=== PATIENT | male | born 1975 | race Caucasian/White ===

== ENCOUNTER → 2018-08-10 | Outpatient (CLI) | payer OTHER ==
[~2018-08-10] MED LIST: INH; MULT-608 PO; PROBIOTIC1 EACH PO; SULF1TAB38 PO
[2018-08-10 07:24] LABS: BASOPHILS % (AUTO) 1 % (0-10); EOSINOPHILS # (AUTO) 0.1 10^3/uL (0.0-0.3); EOSINOPHILS % (AUTO) 3 % (0-10); HEMATOCRIT 41 % (40-54); HEMOGLOBIN 14.2 G/DL (13.3-17.7); LYMPHOCYTES # (AUTO) 1.9 X 10^3 (1.0-4.0); LYMPHOCYTES % (AUTO) 41 % (12-44); MEAN CORPUSCULAR HEMOGLOBIN 29 PG (25-34); MEAN CORPUSCULAR HGB CONC 35 G/DL (32-36); MEAN CORPUSCULAR VOLUME 83 FL (80-99); MEAN PLATELET VOLUME 10.8 FL (7.4-10.4); MONOCYTES # (AUTO) 0.5 X 10^3 (0.0-1.0); MONOCYTES % (AUTO) 12 % (0-12); NEUTROPHILS % (AUTO) 44 % (42-75); PLATELET COUNT 213 10^3/uL (130-400); RED BLOOD COUNT 4.92 10^6/uL (4.35-5.85); RED CELL DISTRIBUTION WIDTH 13.5 % (10.0-14.5); WHITE BLOOD COUNT 4.6 10^3/uL (4.3-11.0)
[2018-08-10 07:45] LABS: ALANINE AMINOTRANSFERASE 42 U/L (0-55); ALBUMIN 4.2 GM/DL (3.2-4.5); ALKALINE PHOSPHATASE 81 U/L (40-136); BUN/CREATININE RATIO 14; CALCIUM 9.5 MG/DL (8.5-10.1); CARBON DIOXIDE 22 MMOL/L (21-32); CHLORIDE 109 MMOL/L (98-107); CHOLESTEROL 164 MG/DL (< 200); CREATININE SERUM 0.96 MG/DL (0.60-1.30); GFR ESTIMATED > 60; GLUCOSE 108 MG/DL (70-105); HDL CHOLESTEROL 40 MG/DL (40-60); POTASSIUM 4.1 MMOL/L (3.6-5.0); SODIUM 140 MMOL/L (135-145); TOTAL PROTEIN 6.8 GM/DL (6.4-8.2); TRIGLYCERIDES 71 MG/DL (<150); VLDL CHOLESTEROL 14 MG/DL (5-40)
[2018-08-10 08:06] LABS: FREE T4 (FREE THYROXINE) 1.06 NG/DL (0.70-1.48)
== END ==
LOC: LAB 07:07
PROVIDERS: ATTEND Nurse Practitioner Family
DX: Z00.00 Encounter for general adult medical examination without abnormal findings (principal); E03.9 Hypothyroidism, unspecified; R63.1 Polydipsia
CPT/HCPCS: 36415; 80053; 80061; 83036; 84439; 84443; 85025

== ENCOUNTER 2018-09-16 02:33 | Emergency (ER) | payer OTHER ==
[~2018-09-16] VITALS: Ht 190.5 cm; Wt 95.3 kg
[2018-09-16] MEDS ORDERED: KETOROLAC 30 MG/ML VIAL IVP STA (02:42)
[2018-09-16] MEDS ORDERED: LACTATED RINGERS 1,000 ML IV ONE ×2 (02:42→04:11)
[2018-09-16] MEDS ORDERED: ONDANSETRON 4 MG/2 ML (SDV) Z0FRAN IVP ONE ×2 (02:45→05:45)
[2018-09-16 02:54] LABS: BASOPHILS % (AUTO) 0 % (0-10); EOSINOPHILS # (AUTO) 0.4 10^3/uL (0.0-0.3); EOSINOPHILS % (AUTO) 4 % (0-10); HEMATOCRIT 41 % (40-54); HEMOGLOBIN 14.1 G/DL (13.3-17.7); LYMPHOCYTES # (AUTO) 2.1 X 10^3 (1.0-4.0); LYMPHOCYTES % (AUTO) 23 % (12-44); MEAN CORPUSCULAR HEMOGLOBIN 28 PG (25-34); MEAN CORPUSCULAR HGB CONC 34 G/DL (32-36); MEAN CORPUSCULAR VOLUME 83 FL (80-99); MEAN PLATELET VOLUME 10.5 FL (7.4-10.4); MONOCYTES # (AUTO) 0.8 X 10^3 (0.0-1.0); MONOCYTES % (AUTO) 9 % (0-12); NEUTROPHILS % (AUTO) 65 % (42-75); PLATELET COUNT 200 10^3/uL (130-400); RED BLOOD COUNT 4.98 10^6/uL (4.35-5.85); RED CELL DISTRIBUTION WIDTH 13.2 % (10.0-14.5); WHITE BLOOD COUNT 9.4 10^3/uL (4.3-11.0)
[2018-09-16 03:15] LABS: ALANINE AMINOTRANSFERASE 32 U/L (0-55); ALBUMIN 4.4 GM/DL (3.2-4.5); ALKALINE PHOSPHATASE 77 U/L (40-136); AMYLASE 44 U/L (25-125); BILIRUBIN,TOTAL 0.9 MG/DL (0.1-1.0); BUN/CREATININE RATIO 16; CALCIUM 9.4 MG/DL (8.5-10.1); CARBON DIOXIDE 21 MMOL/L (21-32); CHLORIDE 105 MMOL/L (98-107); CREATININE SERUM 1.16 MG/DL (0.60-1.30); GFR ESTIMATED > 60; GLUCOSE 137 MG/DL (70-105); LIPASE 26 U/L (8-78); POTASSIUM 3.7 MMOL/L (3.6-5.0); SODIUM 138 MMOL/L (135-145)
[2018-09-16] MEDS ORDERED: fentaNYL INJECTION 100 MCG/2 ML AMP IVP STA (04:11)
[2018-09-16] MEDS ORDERED: TAMSULOSIN 0.4 MG (FLOMAX) CAP PO SCH (04:15)
[2018-09-16 04:38] LABS: BILIRUBIN,URINE NEGATIVE (NEGATIVE); CLARITY,URINE CLEAR; COLOR,URINE YELLOW; GLUCOSE, URINE (UA) NEGATIVE (NEGATIVE); KETONES,URINE NEGATIVE (NEGATIVE); LEUKOCYTE ESTERASE ,URINE NEGATIVE (NEGATIVE); NITRITE,URINE NEGATIVE (NEGATIVE); PH,URINE 6 (5-9); PROTEIN,URINE 1+ (NEGATIVE); UROBILINOGEN,URINE NORMAL (NORMAL)
--- NOTE | 2018-09-16 04:38 | ED GU-Male ---
General Chief Complaint: Abdominal/GI Problems Stated Complaint: POSS KIDNEY STONE Nursing Triage Note: PT ARRIVES IN ED ROOM #5 WITH C/O PAIN FROM POSSIBLE KIDNEY STONE. PT STATES THAT THE PAIN STARTED ON MONDAY. PT'S PAIN HAS CONTINUED AND IS NOW INTOLERABLE. PT STATES THAT HE IS NOW HAVING DIFFICULTY URINATING. PT HAS A HX OF KIDNEY STONES. Source: patient Exam Limitations: no limitations History of Present Illness Date Seen by Provider: Sep 16, 2018 Time Seen by Provider: 02:40 Initial Comments PT ARRIVES VIA POV FROM HOME C/O LEFT FLANK PAIN RADIATION TO LLQ SINCE MONDAY WAS BETTER ON MONDAY, THEN PAIN RETURNED MONDAY (EARLIER TODAY) PAIN INITIALLY WOULD COME AND GO AND TOOK 1 HYDROCODONE AT 1830 AND IT HELPED LATER WENT TO SLEEP AND THEN WOKE UP AROUND 0100 WITH SEVERE PAIN TRIED TO TAKE ANOTHER HYDROCODONE, BUT HE BEGAN VOMITING SHORTLY AFTER THAT AND COULD NOT KEEP IT DOWN NO FEVER DID HAVE SOME BLOOD IN URINE ON MONDAY BUT NOT NOTICED ANY SINCE HAS NOT BEEN ABLE TO URINATE SINCE WAKING AT 0100, WAS VOIDING NORMALLY UNTIL THAT TIME. HAS A HISTORY OF KIDNEY STONES, AND THIS IS SIMILAR--HAS NOT HAD ONE FOR QUITE SOME TIME PCP: DR. TOURE UROLOGIST: DR. GORSS Allergies and Home Medications Allergies Coded Allergies: No Known Drug Allergies (Unverified , 10/30/10) Home Medications Lactobacillus Rhamnosus Gg 1 Each Capsule, 1 EACH PO DAILY, (Reported) Multivitamins 1 Tab Tablet, 1 TAB PO DAILY, (Reported) Patient Home Medication List Home Medication List Reviewed: Yes Review of Systems Review of Systems Constitutional: no symptoms reported Respiratory: no symptoms reported Cardiovascular: no symptoms reported Gastrointestinal: see HPI, abdominal pain, nausea, vomiting Genitourinary: see HPI, flank pain, hematuria Musculoskeletal: see HPI, back pain Skin: no symptoms reported Psychiatric/Neurological: No Symptoms Reported Endocrine: No Symptoms Reported Hematologic/Lymphatic: No Symptoms Reported Past Giavaff-Otbulb-Dsefvl Hx Patient Social History Alcohol Use: Denies Use Recreational Drug Use: No Smoking Status: Never a Smoker 2nd Hand Smoke Exposure: No Recent Foreign Travel: No Contact w/Someone Who Travel: No Recent Infectious Disease Expo: No Recent Hopitalizations: No Physical Abuse: No Sexual Abuse: No Mistreated: No Fear: No Immunizations Up To Date Date of Influenza Vaccine: Sep 06, 2011 Seasonal Allergies Seasonal Allergies: Yes Past Medical History Surgeries: Yes (CARDIAC SURGERY CHILD; RIGHT KNEE SCOPE; LITHOTRIPSY) Cardiac, Orthopedic, Renal Respiratory: No Cardiac: Yes (AVM) Congenital Heart Disease Neurological: Yes ([facility]M) Reproductive Disorders: No Genitourinary: Yes Kidney Stones Gastrointestinal: No Musculoskeletal: Yes (RIGHT KNEE SCOPE) Endocrine: No HEENT: No Cancer: No Psychosocial: No Integumentary: No Blood Disorders: No Physical Exam Vital Signs Vital Signs - First Documented 09/16/18 02:41 Temp 97.0 Pulse 60 Resp 18 B/P (MAP) 139/74 (95) Pulse Ox 98 Capillary Refill : Less Than 3 Seconds Height, Weight, BMI Height: 6'3.00" Weight: 210lbs. 0.0oz. 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, no motor/sensory deficits, alert, oriented x 3 Skin: normal color, warm/dry Progress/Results/Core Measures Suspected Sepsis Recent Fever Within 48 Hours: No Infection Criteria Present: None New/Unexplained Altered Menta: No Sepsis Screen: No Definite Risk SIRS Temperature:97.0 Pulse: 60 Respiratory Rate: 18 Laboratory Tests 09/16/18 02:45: White Blood Count 9.4 Blood Pressure 139 /74 Mean: 95 Laboratory Tests 09/16/18 02:45: Creatinine 1.16, Platelet Count 200, Total Bilirubin 0.9 Results/Orders Lab Results Laboratory Tests Test 09/16/18 02:45 Range/Units White Blood Count 9.4 4.3-11.0 10^3/uL Red Blood Count 4.98 4.35-5.85 10^6/uL Hemoglobin 14.1 13.3-17.7 G/DL Hematocrit 41 40-54 % Mean Corpuscular Volume 83 80-99 FL Mean Corpuscular Hemoglobin 28 25-34 PG Mean Corpuscular Hemoglobin Concent 34 32-36 G/DL Red Cell Distribution Width 13.2 10.0-14.5 % Platelet Count 200 130-400 10^3/uL Mean Platelet Volume 10.5 H 7.4-10.4 FL Neutrophils (%) (Auto) 65 42-75 % Lymphocytes (%) (Auto) 23 12-44 % Monocytes (%) (Auto) 9 0-12 % Eosinophils (%) (Auto) 4 0-10 % Basophils (%) (Auto) 0 0-10 % Neutrophils # (Auto) 6.0 1.8-7.8 X 10^3 Lymphocytes # (Auto) 2.1 1.0-4.0 X 10^3 Monocytes # (Auto) 0.8 0.0-1.0 X 10^3 Eosinophils # (Auto) 0.4 H 0.0-0.3 10^3/uL Basophils # (Auto) 0.0 0.0-0.1 10^3/uL Sodium Level 138 135-145 MMOL/L Potassium Level 3.7 3.6-5.0 MMOL/L Chloride Level 105 98-107 MMOL/L Carbon Dioxide Level 21 21-32 MMOL/L Anion Gap 12 5-14 MMOL/L Blood Urea Nitrogen 19 H 7-18 MG/DL Creatinine 1.16 0.60-1.30 MG/DL Estimat Glomerular Filtration Rate > 60 BUN/Creatinine Ratio 16 Glucose Level 137 H 70-105 MG/DL Calcium Level 9.4 8.5-10.1 MG/DL Corrected Calcium 9.1 8.5-10.1 MG/DL Total Bilirubin 0.9 0.1-1.0 MG/DL Aspartate Amino Transf (AST/SGOT) 22 5-34 U/L Alanine Aminotransferase (ALT/SGPT) 32 0-55 U/L Alkaline Phosphatase 77 40-136 U/L Total Protein 7.0 6.4-8.2 GM/DL Albumin 4.4 3.2-4.5 GM/DL Amylase Level 44 25-125 U/L Lipase 26 8-78 U/L My Orders Orders - CHANI CHUN DO Ct Abd/Pelvis Wo(Kidney Stone) (09/16/18 02:42) Amylase (09/16/18 02:42) Cbc With Automated Diff (09/16/18 02:42) Comprehensive Metabolic Panel (09/16/18 02:42) Lipase (09/16/18 02:42) Ua Culture If Indicated (09/16/18 02:42) Acute Abd Series (09/16/18 02:42) Saline Lock/Iv-Start (09/16/18 02:42) Saline Lock/Iv-Start (09/16/18 02:42) Lactated Ringers (Lr 1000 Ml Iv Solution (09/16/18 02:42) Ketorolac Injection (Toradol Injection) (09/16/18 02:42) Ondansetron Injection (Zofran Injectio (09/16/18 02:45) Saline Lock/Iv-Start (09/16/18 04:11) Lactated Ringers (Lr 1000 Ml Iv Solution (09/16/18 04:11) Fentanyl Injection (Sublimaze Injection (09/16/18 04:11) Tamsulosin Capsule (Flomax Capsule) (09/16/18 04:15) Medications Given in ED Current Medications Medications Dose Ordered Sig/Blanca Route Start Time Stop Time Status Last Admin Dose Admin Lactated Ringer's 1,000 ml @ 0 mls/hr Q0M ONCE IV 09/16/18 02:42 09/16/18 02:44 DC 09/16/18 02:52 0 MLS/HR Ondansetron HCl 8 mg ONCE ONCE IVP 09/16/18 02:45 09/16/18 02:46 DC 09/16/18 02:52 8 MG Vital Signs/I&O 09/16/18 02:41 Temp 97.0 Pulse 60 Resp 18 B/P (MAP) 139/74 (95) Pulse Ox 98 Capillary Refill : Less Than 3 Seconds Blood Pressure Mean: 95 Progress Note : Progress Note MODERATE IMPROVEMENT IN PAIN WITH TORADOL, PT IS ABLE TO REST QUIETLY PT DECLINED FENTANYL OR ANY OTHER PAIN MEDICATIONS RATES PAIN 2/10 AFTER TORADOL NAUSEA RESOLVED WITH ZOFRAN Diagnostic Imaging Comments ABD XRAYS--NO ACUTE PROCESS, PENDING RADIOLOGIST REVIEW CT ABDOMEN/PELVIS--4.5 MM LEFT MID URETERAL STONE WITH MILD LEFT HYDRONEPHROSIS- -PER [facility] VIA FAX @ 1231 Reviewed: Reviewed by Me Departure Impression Primary Impression: Left ureteral stone Disposition: HOME, SELF-CARE Condition: Improved Departure-Patient Inst. Referrals: JAMES TOURE MD (PCP/Family) Primary Care Physician PATRICK GROSS MD Patient Instructions: Kidney Stones (DC) Add. Discharge Instructions: LOTS OF FLUIDS STRAIN ALL URINE---RETURN ANY STONES TO DR. GROSS'S OFFICE FOLLOW UP WITH DR. GROSS ON MONDAY FOR FURTHER CARE RETURN TO ER IF WORSE All discharge instructions reviewed with patient and/or family. Voiced understanding. Scripts Ondansetron HCl (Zofran) 4 Mg Tab 1-2 TAB PO Q4H for Nausea/Vomiting, #10 TAB Prov: ADIELCHANI K DO 09/16/18 Hydrocodone/Ibuprofen (Hydrocodone-Ibuprofen 7.5-200) 1 Each Tablet 1-2 EACH PO Q4H for Pain MDD 6, #30 TAB Prov: ADIELCHANI K DO 09/16/18 Tamsulosin HCl (Flomax) 0.4 Mg Cap 0.4 MG PO DAILY, #10 CAP Prov: ADIELCHELAA K DO 09/16/18 Ciprofloxacin HCl (Cipro) 500 Mg Tablet 500 MG PO BID, #20 TAB Prov: ADIEL,CHANI K DO 09/16/18 ADIELCHANI K DO Sep 16, 2018 04:38
[2018-09-16 04:45] LABS: BACTERIA,URINE FEW /HPF; HYALINE CASTS, URINE RARE /LPF; RBC,URINE >100 /HPF; SQUAMOUS EPITHELIAL CELL,UR 0-2 /HPF; WBC,URINE RARE /HPF
[2018-09-16] MEDS ORDERED: CIPR-225 PO (05:09)
[2018-09-16] MEDS ORDERED: ONDN4T PO (05:09)
[2018-09-16] MEDS ORDERED: TAMS0.4C98 PO (05:09)
[2018-09-16] MEDS ORDERED: RX-ONDANSETRON 4 MG ODT (ZOFRAN) PPK #4 PO STA (05:09)
[2018-09-16] MEDS ORDERED: HYDR-87 PO (05:09)
[2018-09-16] MEDS ORDERED: RX-HYDROCODONE/APAP 5/325 MG #4 TAB PK PO PRN (05:15)
[2018-09-16 06:09] VITALS: BP 107/77
--- NOTE | 2018-09-16 06:41 | Diagnostic Imaging Report ---
PROCEDURE: CT urinary tract, rule out kidney stone. TECHNIQUE: Multiple contiguous axial images were obtained through the abdomen and pelvis without the use of intravenous contrast. INDICATION: Left flank pain. COMPARISON: None available. FINDINGS: Evaluation of the abdominal viscera is mildly limited without contrast. Lower chest: Calcified lingular pulmonary nodule and mediastinal lymph nodes are compatible with old granulomatous infection. No pericardial or pleural effusion. Peritoneum: No free intraperitoneal air or fluid. Liver and biliary system: Unenhanced liver is normal. The gallbladder is normal. No biliary duct dilation. Spleen and Pancreas: Spleen is normal. Unenhanced pancreas is grossly normal. Adrenals: Normal. tract: Mild left hydronephrosis and proximal hydroureter secondary to a 4 mm partially obstructing stone in the mid left ureter. No right renal or ureteral calculi. No right-sided obstructive uropathy. Urinary bladder is normally distended without wall thickening. Normal prostate. GI tract: Stomach is normally distended with fluid and food debris and there is no wall thickening. No bowel obstruction. No pericolonic inflammatory changes. Normal appendix. Vasculature and Lymph nodes: Normal caliber aorta. No abdominal or pelvic lymphadenopathy. Musculoskeletal: There is a spiculated sclerotic 9 mm rounded lesion within the left ilium at the lower aspect of the SI joint. IMPRESSION: 1. Mild left-sided hydronephrosis and hydroureter due to a 4 mm partially obstructing stone in the mid left ureter. 2. Sclerotic lesion within the left ilium may represent benign bone island, although no prior imaging is available to confirm stability. Consider followup CT pelvis without contrast in three-six months to ensure stability. Dictated by: Dictated on workstation # [id number]
--- NOTE | 2018-09-16 06:55 | Diagnostic Imaging Report ---
INDICATION: Left flank pain. COMPARISON: CT abdomen and pelvis performed earlier same day. FINDINGS: Lungs are clear with exception of a stable calcified lingular pulmonary nodule. No pleural effusion or pneumothorax. Normal cardiomediastinal silhouette. No free intraperitoneal air. No mineralized renal or ureteral stones by radiography. However, patient's known mid left ureteral stone is not radiographically apparent. Nonobstructive bowel gas pattern. Normal regional skeleton. IMPRESSION: 1. Patient's known left mid renal stone is not radiographically apparent. 2. Nonobstructive bowel gas pattern. 3. No acute cardiopulmonary process. Dictated by: Dictated on workstation # [id number]
[2018-09-16] MEDS ORDERED: HYDROcodone/APAP 5 MG/325 MG (LORTAB) TAB PO PRN (08:30)
== END 2018-09-16 06:09 | disposition home or self-care (01) ==
LOC: EDUNIT# 02:33 → ER 02:34
DX: N13.2 Hydronephrosis with renal and ureteral calculous obstruction (principal); Z87.442 Personal history of urinary calculi
CPT/HCPCS: 36415; 74022; 74176; 80053; 81000; 82150; 83690; 85025

== ENCOUNTER → 2018-09-17 | Outpatient (CLI) | payer OTHER ==
[~2018-09-17] MED LIST changes: +CIPR-225 PO; +HYDR-87 PO; +ONDN4T PO; +TAMS0.4C98 PO
--- NOTE | 2018-09-17 15:37 | Diagnostic Imaging Report ---
INDICATION: Left kidney stone and ureteral stone. TIME OF EXAM: 3:07 PM COMPARISON: Comparison is made to CT study from 09/16/2018. FINDINGS: No definite radiopaque renal calculi are seen. The previously noted ureteral calculus may be lying adjacent to the left transverse process of L4. No other suspicious calculi are seen. Bowel gas pattern is unremarkable. IMPRESSION: Previously noted mid left ureteric calculus appears to be in similar location adjacent to L4 transverse process. No other abnormalities are seen. Dictated by: Dictated on workstation # [id number]
== END ==
LOC: RAD 14:06
PROVIDERS: ATTEND Urology
DX: N20.2 Calculus of kidney with calculus of ureter (principal)
CPT/HCPCS: 74018

== ENCOUNTER 2018-09-25 06:00 | Day surgery (SDC) | payer OTHER ==
[~2018-09-25] VITALS: Ht 190.5 cm; Wt 95.3 kg
[2018-09-25 06:25] VITALS: BP 118/84
[2018-09-25] MEDS ORDERED: MIDAZOLAM 2 MG/2 ML (VERSED) VIAL ONE (06:50)
[2018-09-25] MEDS ORDERED: fentaNYL INJECTION 100 MCG/2 ML AMP ONE (06:50)
[2018-09-25] MEDS ORDERED: ONDANSETRON 4 MG/2 ML (SDV) Z0FRAN ONE ×2 (06:50→06:54)
[2018-09-25] MEDS ORDERED: proPOfol 200 MG/20 ML (DIPRIVAN) VIAL IV ONE ×2 (06:50→07:44)
[2018-09-25] MEDS ORDERED: LIDOCAINE PF 2% 5 ML (XYLOCAINE) VIAL ONE (06:50)
[2018-09-25] MEDS ORDERED: DEXAMETHASONE 10 MG/ML (DECADRON) 1 ML VIAL ONE (06:50)
[2018-09-25] MEDS ORDERED: SEVOFLURANE (ULTANE) 15 ML INHAL SOLN ONE ×5 (06:51→08:02)
[2018-09-25] MEDS ORDERED: NS (IVPB) 50 ML ONE (06:53)
[2018-09-25] MEDS ORDERED: cefTRIAXone 1 GM/10 ML for IV (ROCEPHIN) ONE (06:53)
[2018-09-25] MEDS ORDERED: FAMOTIDINE 20MG/2ML IV (PEPCID) ONE (06:54)
[2018-09-25] MEDS ORDERED: SCOPOLAMINE 1.5 MG (TRANSDERM-SCOP) PATCH ONE (06:54)
[2018-09-25] MEDS ORDERED: cefTRIAXone 1 GM/NS 50 ML IVPB IV ONE ×2 (07:00)
[2018-09-25] MEDS ORDERED: CATHETER FLUSH 10 ML SYR IV PRN (07:00)
--- NOTE | 2018-09-25 07:04 | Progress Note-Pre Operative ---
Pre-Operative Progress Note H&P Reviewed The H&P was reviewed, patient examined and no changes noted. Date Seen by Provider: Sep 25, 2018 Time Seen by Provider: 07:04 Date H&P Reviewed: Sep 25, 2018 Time H&P Reviewed: 07:04 Pre-Operative Diagnosis: LT PROXIMAL URTERAL STONE PATRICK GROSS MD Sep 25, 2018 7:04 am
[2018-09-25] MEDS ORDERED: LACTATED RINGERS 1,000 ML IV PRN (07:22)
--- NOTE | 2018-09-25 07:23 | Diagnostic Imaging Report ---
INDICATION: Preoperative evaluation for ESWL. History of left ureteral calculus. COMPARISON: 09/17/2018. FINDINGS: Single supine radiographic view of the abdomen was obtained and demonstrates subtle spherical extraosseous calcification projecting over the inferolateral margins of the left L3 transverse process. No other extraosseous calcifications or radiopaque foreign bodies are seen. Small bowel loops are nondistended. There is no large collection of free intraperitoneal air. IMPRESSION: Possible calculus projecting over the left L3 transverse processes versus artifact. Dictated by: Dictated on workstation # [id number]
[2018-09-25] MEDS ORDERED: ONDANSETRON 4 MG/2 ML (SDV) Z0FRAN IV ONE (07:30)
[2018-09-25] MEDS ORDERED: SCOPOLAMINE 1.5 MG (TRANSDERM-SCOP) PATCH TOP ONE (07:30)
[2018-09-25] MEDS ORDERED: FAMOTIDINE 20MG/2ML IV (PEPCID) IV ONE (07:30)
--- NOTE | 2018-09-25 07:59 | Progress Note-Post Operative ---
Post-Operative Progess Note Surgeon (s)/Furnace Cleaner (s) Surgeon PATRICK GROSS MD Furnace Cleaner: NONE Pre-Operative Diagnosis LT PROXIMAL URETERAL STONE Post-Operative Diagnosis SAME Procedure & Operative Findings Date of Procedure 09/25/18 Procedure Performed/Findings LT URETEROSCOPY AND LT ESWL Anesthesia Type GENERAL Estimated Blood Loss Estimated blood loss (mL): NONE Specimens/Packing Specimens Removed NONE Packing: NONE PATRICK GROSS MD Sep 25, 2018 7:59 am
--- NOTE | 2018-09-25 08:01 | Discharge Inst-Urology ---
Discharge Inst-Urology Discharge Medications New, Converted, or Re-newed RX: RX on Chart Patient Instructions/Follow Up Plan Please make appointment to been seen in office in 2 weeks. KUB prior to it KUB on way home Post ESWL instructions Increase oral fluids for 48 hours and then as needed. Diet and Activity as tolerated. If questions or concerns contact your physician Or seek help at emergency department. PATRICK GROSS MD Sep 25, 2018 8:01 am
[2018-09-25] MEDS ORDERED: FUROSEMIDE 40 MG/4 ML INJ (LASIX) ONE (08:03)
[2018-09-25] MEDS ORDERED: KETOROLAC 30 MG/ML VIAL ONE (08:03)
[2018-09-25] MEDS ORDERED: HYDROmorphone 2 MG/ML VIAL (DILAUDID) IV ONE (08:30)
[2018-09-25] MEDS ORDERED: PROMETHAZINE INJ 25 MG/ML (PHENERGAN) AMP IVP ONE (08:30)
[2018-09-25 09:25] VITALS: BP 114/67
[2018-09-25 09:30] VITALS: BP 114/67
[2018-09-25] MEDS ORDERED: HYDR-3870 PO (09:35)
[2018-09-25] MEDS ORDERED: PHEN-640 PO (09:35)
[2018-09-25] MEDS ORDERED: CIPR-225 PO (09:35)
[2018-09-25] MEDS ORDERED: TAMS0.4C98 PO (09:35)
[2018-09-25 09:55] VITALS: BP 130/75
--- NOTE | 2018-09-25 10:13 | Diagnostic Imaging Report ---
EXAMINATION: Supine abdomen at 1020h. INDICATION: Post ESWL The exam performed earlier today at 7:22 AM raised the question of a calculus projecting over the left transverse process of L3. That finding is not well-visualized on this study due to overlying bowel gas and fecal material. There is no other pathological calcification identified. IMPRESSION: There is no pathological calcification identified. Dictated by: Dictated on workstation # [id number]
--- NOTE | 2018-09-25 10:24 | Anesthesia-General Post-Op ---
General Patient Condition Mental Status/LOC: Same as Preop Cardiovascular: Satisfactory Nausea/Vomiting: Absent Respiratory: Satisfactory Pain: Controlled Complications: Absent Post Op Complications Complications None Follow Up Care/Instructions Patient Instructions None needed. Anesthesia/Patient Condition Patient Condition Patient is doing well, no complaints, stable vital signs, no apparent adverse anesthesia problems. No complications reported per nursing. JAQUELINE ARAUJO CRNA Sep 25, 2018 10:24
[2018-09-25 10:25] VITALS: BP 127/89
--- NOTE | 2018-09-25 12:34 | OPERATIVE REPORT ---
DATE OF SERVICE: 09/25/2018 PREOPERATIVE DIAGNOSIS: Left proximal ureteral stone. POSTOPERATIVE DIAGNOSIS: Left proximal ureteral stone. OPERATION PERFORMED: Left ureteroscopy and left ESWL. SURGEON: David Gross MD. ANESTHESIA: General. COMPLICATIONS: None. DESCRIPTION OF PROCEDURE: Under satisfactory general anesthesia, the patient in lithotomy position, genitalia were prepped and draped in usual sterile fashion. A 23-Sudanese cystoscope was introduced in the bladder. Urethra was normal. Prostate was nonobstructive. Bladder neck was open. Bladder was inspected and was normal. There was clear efflux on both sides, sluggish on the left side. Using the foroblique lens, I dilated the left ureteral orifice intramural portion to accommodate the semi-rigid left 6.9 Sudanese ureteroscopy. I could not manipulate beyond the distal ureter, so I discontinued further attempt to remove the ureteroscope and reinserted the cystoscope to enter the bladder. I moved the patient on the ESWL table and the left proximal ureteral stone at L4 was localized, 5 mm in size. Shocks were delivered at a kV of 6, a total of 2000 shocks completely fragmented the stone that was not visible anymore. The patient received 40 mg of Lasix and 30 mg of Toradol IV at the end of the procedure. He tolerated the procedure and anesthesia well and was sent to recovery room in stable condition. Job ID: [id number] DocumentID: [id number] Dictated Date: 09/25/2018 08:20:04 Toll Test Desk Worker Date: 09/25/2018 12:34:16 Dictated By: DAVID GROSS MD
== END 2018-09-25 10:35 | disposition home or self-care (01) ==
LOC: SDC 06:00
PROVIDERS: ATTEND Urology
DX: N20.1 Calculus of ureter (principal)
CPT/HCPCS: 74018; 87081

== ENCOUNTER → 2018-10-01 | Emergency (ER) | payer OTHER ==
[~2018-10-01] VITALS: Ht 190.5 cm; Wt 95.3 kg
[~2018-10-01] MED LIST changes: +HYDR-3870 PO; +KETOROLAC 30 MG/ML VIAL IVP STA; +KETOROLAC 30 MG/ML VIAL ONE; +NS IV 1000 ML 1,000 ML IV STA; +NS IV 1000 ML 1,000 ML ONE; +ONDA8TAB13 PO; +ONDANSETRON 4 MG/2 ML (SDV) Z0FRAN IVP ONE; +ONDANSETRON 4 MG/2 ML (SDV) Z0FRAN ONE; +PHEN-640 PO; +TRAM-42 PO
[2018-10-01 11:30] LABS: BASOPHILS % (AUTO) 0 % (0-10); EOSINOPHILS # (AUTO) 0.3 10^3/uL (0.0-0.3); EOSINOPHILS % (AUTO) 4 % (0-10); HEMATOCRIT 41 % (40-54); HEMOGLOBIN 13.9 G/DL (13.3-17.7); LYMPHOCYTES % (AUTO) 29 % (12-44); MEAN CORPUSCULAR HEMOGLOBIN 28 PG (25-34); MEAN CORPUSCULAR HGB CONC 34 G/DL (32-36); MEAN CORPUSCULAR VOLUME 83 FL (80-99); MEAN PLATELET VOLUME 11.2 FL (7.4-10.4); MONOCYTES # (AUTO) 0.7 X 10^3 (0.0-1.0); MONOCYTES % (AUTO) 10 % (0-12); NEUTROPHILS % (AUTO) 58 % (42-75); PLATELET COUNT 194 10^3/uL (130-400); RED BLOOD COUNT 4.89 10^6/uL (4.35-5.85); RED CELL DISTRIBUTION WIDTH 13.4 % (10.0-14.5)
[2018-10-01 11:51] LABS: ALBUMIN 4.1 GM/DL (3.2-4.5); BILIRUBIN,TOTAL 1.3 MG/DL (0.1-1.0); CREATININE SERUM 1.44 MG/DL (0.60-1.30); POTASSIUM 4.1 MMOL/L (3.6-5.0); TOTAL PROTEIN 6.9 GM/DL (6.4-8.2)
--- NOTE | 2018-10-01 12:08 | ED GU-Male ---
General Chief Complaint: Abdominal/GI Problems Stated Complaint: KIDNEY STONE PAIN Nursing Triage Note: PT STATES HX OF KIDNEY STONES FOR A COUPLE WEEKS, LITHOTRIPSY ON 09/25, PAIN CAME BACK MONDAY NIGHT. PAIN WAS IN LT FLANK, NO PAIN NOW. Source: patient Exam Limitations: no limitations (JODY GLASS MD) History of Present Illness Date Seen by Provider: Oct 01, 2018 Time Seen by Provider: 11:14 Initial Comments Here with report of left flank pain and known kidney stone. Apparently he had lithotripsy after failed basket last week. He was doing better for a while and then had intermittent return of pain. Starting Monday night he has had fairly significant and persistent pain that does resolve somewhat with hydrocodone although the hydrocodone makes him feel quite bad as well. This includes nausea and drowsiness. Denies blood in his urine. Reports taking meds as directed although did miss 2 doses of his antibiotics. No report of fevers although his temperature is in the normal range but slightly higher than his normal range. They did call Dr. Gross's office to that instructed him to come to the emergency department as he is out of town currently. Timing/Duration: week, getting worse, changing over time Severity/Quality: moderate, severe, aching Location: left flank Radiation: suprapubic Activities at Onset: none Prior Genitourinary Problems: similar symptoms Associated Symptoms: No fever/chills; lower back pain, nausea/vomiting ( JODY GLASS MD) Allergies and Home Medications Allergies Coded Allergies: No Known Drug Allergies (Unverified , 10/30/10) Home Medications Ciprofloxacin HCl 500 Mg Tablet, 500 MG PO BID Prescribed by: CHANI CHUN on 09/16/18 0509 Ciprofloxacin HCl 500 Mg Tablet, 500 MG PO BID Prescribed by: JONATAN GAONA on 09/25/18 0935 Hydrocodone/Acetaminophen 1 Each Tablet, 1-2 EACH PO Q6H PRN for PAIN-MODERATE Prescribed by: JONATAN GAONA on 09/25/18 0935 Hydrocodone/Ibuprofen 1 Each Tablet, 1-2 EACH PO Q4H Prescribed by: CHANI CHUN on 09/16/18 0509 Lactobacillus Rhamnosus Gg 1 Each Capsule, 1 EACH PO DAILY, (Reported) Multivitamins 1 Tab Tablet, 1 TAB PO DAILY, (Reported) Ondansetron HCl 4 Mg Tab, 1-2 TAB PO Q4H Prescribed by: CHANI CHUN on 09/16/18 050 Phenazopyridine HCl 200 Mg Tablet, 1 TAB PO TID PRN for SPASMS Prescribed by: JONATAN GAONA on 09/25/18 09 Tamsulosin HCl 0.4 Mg Cap, 0.4 MG PO DAILY Prescribed by: CHANI CHUN on 09/16/18 050 Tamsulosin HCl 0.4 Mg Cap, 0.4 MG PO DAILY Prescribed by: JONATAN GAONA on 09/25/18934 Patient Home Medication List Home Medication List Reviewed: Yes (JODY GLASS MD) Review of Systems Review of Systems Constitutional: see HPI; No chills, No fever EENTM: no symptoms reported Respiratory: no symptoms reported Cardiovascular: no symptoms reported Gastrointestinal: see HPI; No diarrhea Genitourinary: flank pain, pain Musculoskeletal: see HPI (JODY GLASS MD) All Other Systemes Reviewed Negative Unless Noted: Yes (JODY GLASS MD) Past Xcqggye-Hvaaqn-Fzhnpa Hx Past Med/Social Hx: Reviewed Nursing Past Med/Soc Hx (JODY GLASS MD) Patient Social History Alcohol Use: Rarely Uses Alcohol Beverage of Choice: Beer Recreational Drug Use: No Smoking Status: Never a Smoker 2nd Hand Smoke Exposure: No Recent Foreign Travel: No Contact w/Someone Who Travel: No Recent Infectious Disease Expo: No Recent Hopitalizations: No (JODY GLASS MD) Immunizations Up To Date Tetanus Booster (TDap): Unknown PED Vaccines UTD: No Date of Influenza Vaccine: Sep 06, 2011 (JODY GLASS MD) Seasonal Allergies Seasonal Allergies: Yes (JODY GLASS MD) Past Medical History Surgeries: Yes (CARDIAC SURGERY CHILD; RIGHT KNEE SCOPE; LITHOTRIPSY) Cardiac, Orthopedic, Renal Respiratory: No Cardiac: Yes (AVM) Congenital Heart Disease Neurological: Yes (AVM) Reproductive Disorders: No Genitourinary: Yes Kidney Stones Gastrointestinal: No Musculoskeletal: Yes (RIGHT KNEE SCOPE) Endocrine: No HEENT: No Cancer: No Psychosocial: No Integumentary: No Blood Disorders: No (JODY GLASS MD) Family Medical History Reviewed Nursing Family Hx (JODY GLASS MD) Physical Exam Vital Signs Vital Signs - First Documented 10/01/18 11:18 Temp 96.8 Pulse 58 B/P (MAP) 142/103 (116) Pulse Ox 98 O2 Delivery Room Air (CORINE GOMEZ APRN) Vital Signs Capillary Refill : Less Than 3 Seconds (JODY GLASS MD) Height, Weight, BMI Height: 6'3.00" Weight: 210lbs. 0.0oz. 95.005756bp; 26.3 BMI Method:Stated General Appearance: WD/WN, no apparent distress HEENT: PERRL/EOMI, pharynx normal Neck: full range of motion, supple Cardiovascular: regular rate, rhythm, no murmur Respiratory: lungs clear, normal breath sounds Gastrointestinal: non tender, soft Back: normal inspection, no CVA tenderness, no vertebral tenderness Extremities: non-tender, normal inspection Neurologic/Psychiatric: alert, oriented x 3 Skin: normal color, warm/dry (JODY GLASS MD) Progress/Results/Core Measures Suspected Sepsis Recent Fever Within 48 Hours: No Infection Criteria Present: None New/Unexplained Altered Menta: No Sepsis Screen: No Definite Risk SIRS Temperature:96.8 Pulse: 58 Respiratory Rate: Laboratory Tests 10/01/18 11:20: White Blood Count 7.0 Blood Pressure 142 /103 Mean: 116 Laboratory Tests 10/01/18 11:20: Creatinine 1.44H, Platelet Count 194, Total Bilirubin 1.3H (JODY GLASS MD) Results/Orders Lab Results Laboratory Tests Test 10/01/18 11:20 Range/Units White Blood Count 7.0 4.3-11.0 10^3/uL Red Blood Count 4.89 4.35-5.85 10^6/uL Hemoglobin 13.9 13.3-17.7 G/DL Hematocrit 41 40-54 % Mean Corpuscular Volume 83 80-99 FL Mean Corpuscular Hemoglobin 28 25-34 PG Mean Corpuscular Hemoglobin Concent 34 32-36 G/DL Red Cell Distribution Width 13.4 10.0-14.5 % Platelet Count 194 130-400 10^3/uL Mean Platelet Volume 11.2 H 7.4-10.4 FL Neutrophils (%) (Auto) 58 42-75 % Lymphocytes (%) (Auto) 29 12-44 % Monocytes (%) (Auto) 10 0-12 % Eosinophils (%) (Auto) 4 0-10 % Basophils (%) (Auto) 0 0-10 % Neutrophils # (Auto) 4.0 1.8-7.8 X 10^3 Lymphocytes # (Auto) 2.0 1.0-4.0 X 10^3 Monocytes # (Auto) 0.7 0.0-1.0 X 10^3 Eosinophils # (Auto) 0.3 0.0-0.3 10^3/uL Basophils # (Auto) 0.0 0.0-0.1 10^3/uL Sodium Level 136 135-145 MMOL/L Potassium Level 4.1 3.6-5.0 MMOL/L Chloride Level 105 98-107 MMOL/L Carbon Dioxide Level 21 21-32 MMOL/L Anion Gap 10 5-14 MMOL/L Blood Urea Nitrogen 15 7-18 MG/DL Creatinine 1.44 H 0.60-1.30 MG/DL Estimat Glomerular Filtration Rate 54 BUN/Creatinine Ratio 10 Glucose Level 113 H 70-105 MG/DL Calcium Level 9.0 8.5-10.1 MG/DL Corrected Calcium 8.9 8.5-10.1 MG/DL Total Bilirubin 1.3 H 0.1-1.0 MG/DL Aspartate Amino Transf (AST/SGOT) 24 5-34 U/L Alanine Aminotransferase (ALT/SGPT) 57 H 0-55 U/L Alkaline Phosphatase 95 40-136 U/L Total Protein 6.9 6.4-8.2 GM/DL Albumin 4.1 3.2-4.5 GM/DL (CORINE GOMEZ APRN) Medications Given in ED Current Medications Medications Dose Ordered Sig/Blanca Route Start Time Stop Time Status Last Admin Dose Admin Ondansetron HCl 4 mg ONCE ONCE IVP 10/01/18 11:30 10/01/18 11:31 DC 10/01/18 11:28 4 MG Ondansetron HCl 4 mg STK-MED ONCE .ROUTE 10/01/18 11:21 10/01/18 11:25 DC 10/01/18 11:26 4 MG (CORINE GOMEZ APRN) Vital Signs/I&O 10/01/18 10/01/18 11:18 11:26 Temp 96.8 96.8 Pulse 58 B/P (MAP) 142/103 (116) Pulse Ox 98 O2 Delivery Room Air (CORINE GOMEZ APRN) Vital Signs/I&O Capillary Refill : Less Than 3 Seconds (JODY GLASS MD) Blood Pressure Mean: 116 Progress Note : Progress Note Seen and evaluated. IV, labs, UA, KUB ordered. Direction from Dr. Gross. I did discuss the case with Dr. Gross at 1136. He is out of town pending flight back into town. We will go ahead and get CT abdomen and pelvis as well for further stone study given current symptoms and concerns. He has had recent basket and lithotripsy and we went to evaluate to ensure that there is no other pathology related to those and/or the stones. Patient did get Toradol 30 mg IV and Zofran 4 mg IV as well as normal saline 1 L bolus. Monitor patient. (JODY GLASS MD) Departure Communication (Admissions) Stone has now moved to the left UVJ and should be able to be passed. Spoke with Dr. Gross. Morning of 2 plans can be pursued. Either we admit today with the plan for stone retrieval tomorrow, or he can be discharged home if pain is adequately controlled to try to pass this on his own and follow-up in the clinic with Dr. Gross tomorrow or Monday. If he is unable to pass the stone at that time he would be scheduled for stone retrieval on either or Monday. Patient would prefer to go home, he states that he is not tolerating the hydrocodone well due to the nausea. He would like to try something standards analyst such as old tram instead. (CORINE GOMEZ APRN) Impression Primary Impression: Left ureteral stone Disposition: 01 HOME, SELF-CARE Condition: Stable Departure-Patient Inst. Decision time for Depature: 13:24 (CORINE GOMEZ APRN) Referrals: JAMES TOURE MD (PCP/Family) Primary Care Physician Patient Instructions: Kidney Stones in Adults Add. Discharge Instructions: 1. Return to ER for any concerns 2. Call Dr. Gross today to make an appointment to be seen either tomorrow or Monday. The plan would be if you are unable to pass the stone between now and your appointment, you would be scheduled for stone retrieval on or Monday. Return to ER in the meantime for any intolerable nausea, intolerable pain or fevers. All discharge instructions reviewed with patient and/or family. Voiced understanding. Scripts Tramadol HCl (Ultram) 50 Mg Tablet 50 MG PO Q6H PRN for PAIN-MODERATE TO SEVERE, #14 TAB Prov: CORINE GOMEZ APRN 10/01/18 Ondansetron (Ondansetron Odt) 8 Mg Tab.rapdis 8 MG PO Q6H PRN for NAUSEA/VOMITING, #14 TAB Prov: CORINE GOMEZ APRN 10/01/18 Copy Copies To 1: PATRICK GROSS MD, TIMOTHY D MD Oct 01, 2018 12:08 CORINE GOMEZ APRN Oct 01, 2018 13:26
--- NOTE | 2018-10-01 13:04 | Diagnostic Imaging Report ---
PROCEDURE: CT urinary tract, rule out kidney stone. TECHNIQUE: Multiple contiguous axial images were obtained through the abdomen and pelvis without the use of intravenous contrast. INDICATION: Left-sided abdominal pain. COMPARISON: 09/16/2018. FINDINGS: Evaluation of the abdominal viscera is mildly limited without contrast. Lower chest: Stable calcified lingular granuloma. Otherwise, lung bases are clear. Peritoneum: No free intraperitoneal air or fluid. Liver and biliary system: Unenhanced liver is normal. The gallbladder is normal. No biliary duct dilation. Spleen and Pancreas: Spleen is normal. Unenhanced pancreas is grossly normal. Adrenals: Normal. tract: Moderate left hydronephrosis and hydroureter is now present due to the 4 mm left renal stone which has now migrated into the distal left ureter at the level of the UVJ. No right renal or ureteral stones. GI tract: Stomach is decompressed. No bowel obstruction. No pericolonic inflammatory changes. Normal appendix. Vasculature and Lymph nodes: Normal caliber aorta. No abdominal or pelvic lymphadenopathy. Musculoskeletal: Stable 9 mm spiculated sclerotic focus in the left ilium. IMPRESSION: 1. Worsening of left-sided hydronephrosis which is now moderate in nature, and due to the 4 mm left ureteral stone which has now migrated to the level of the UVJ. Dictated by: Dictated on workstation # [id number]
--- NOTE | 2018-10-01 13:25 | Diagnostic Imaging Report ---
INDICATION: Left flank pain. EXAMINATION: KUB at 12:55 PM. FINDINGS: The bowel gas pattern is normal. There is a 3 mm opacity projecting over the left side of the urinary bladder which was not apparent on 09/25/2018. IMPRESSION: Small opacification projecting over the left side of the bladder which could be a calculus in the distal left ureter. Dictated by: Dictated on workstation # [id number]
[2018-10-01 13:34] LABS: BILIRUBIN,URINE 3+ (NEGATIVE); CLARITY,URINE BLOODY; COLOR,URINE RED; GLUCOSE, URINE (UA) NEGATIVE (NEGATIVE); KETONES,URINE NEGATIVE (NEGATIVE); LEUKOCYTE ESTERASE ,URINE NEGATIVE (NEGATIVE); NITRITE,URINE POSITIVE (NEGATIVE); PH,URINE 5 (5-9); PROTEIN,URINE 2+ (NEGATIVE); UROBILINOGEN,URINE 8 MG/DL (NORMAL)
[2018-10-01 13:43] VITALS: BP 135/79
[2018-10-01 13:53] LABS: BACTERIA,URINE NEGATIVE /HPF; HYALINE CASTS, URINE 0-2 /LPF; WBC,URINE 0-2 /HPF
== END | disposition home or self-care (01) ==
LOC: EDUNIT# 11:06 → ER 11:10
DX: N13.2 Hydronephrosis with renal and ureteral calculous obstruction (principal); Z98.890 Other specified postprocedural states
CPT/HCPCS: 36415; 74018; 74176; 80053; 81000; 85025; 87088

== ENCOUNTER → 2018-10-03 | Outpatient (CLI) | payer OTHER ==
[~2018-10-03] MED LIST changes: -KETOROLAC 30 MG/ML VIAL IVP STA; -KETOROLAC 30 MG/ML VIAL ONE; -NS IV 1000 ML 1,000 ML IV STA; -NS IV 1000 ML 1,000 ML ONE; -ONDANSETRON 4 MG/2 ML (SDV) Z0FRAN IVP ONE; -ONDANSETRON 4 MG/2 ML (SDV) Z0FRAN ONE
--- NOTE | 2018-10-03 18:30 | Diagnostic Imaging Report ---
INDICATION: Renal calculi. COMPARISON: Comparison is made to study of 10/01/2018. FINDINGS: The 0.3 cm calcification to the left of midline in the pelvis has not appreciably changed. This would be consistent with distal ureteric stone. Evaluation for additional urinary tract calculus is somewhat limited due to stool in the overlying colon. There is a questionable 0.3 cm density to the left of L3, which may be within bowel lumen. Small focus of sclerosis in the left ilium adjacent to left sacroiliac joint has remained stable. IMPRESSION: 0.3 cm calculus at the level of the left ureterovesical junction has not significantly changed. No other definite pathologic calcification or adverse change is seen. Dictated by: Dictated on workstation # [id number]
== END ==
LOC: RAD 14:35
PROVIDERS: ATTEND Urology
DX: N20.2 Calculus of kidney with calculus of ureter (principal)
CPT/HCPCS: 74018

== ENCOUNTER 2018-10-26 09:44 | Outpatient (RCR) | payer OTHER | END 2019-01-24 | disposition home or self-care (01) | LOC: LAB 09:44 | PROVIDERS: ATTEND Urology | DX: N20.1 Calculus of ureter (principal) | CPT/HCPCS: 36415; 82140; 82340; 82507; 82570; 83735; 83945; 83986; 84105; 84133; 84300; 84392; 84560; 88300 ==

== ENCOUNTER 2020-07-28 02:44 | Emergency (ER) | payer OTHER ==
[~2020-07-28] VITALS: Ht 190 cm; Wt 86.0 kg
[~2020-07-28 02:44] MED LIST changes: -TAMS0.4C98 PO; +TMSL.4C PO
[2020-07-28] MEDS ORDERED: diphenhydrAMINE 50 MG/ML INJ (BENADRYL) IV STA (03:00)
[2020-07-28] MEDS ORDERED: FAMOTIDINE 20MG/2ML IV (PEPCID) IV STA (03:00)
[2020-07-28] MEDS ORDERED: methylPREDNISolone 125 MG (Solu-MEDROL) VIAL IV STA (03:00)
[2020-07-28] MEDS ORDERED: PRD20T PO (03:38)
--- NOTE | 2020-07-28 03:38 | ED Integumentary General ---
General Chief Complaint: Allergic Reaction Stated Complaint: HIVES Nursing Triage Note: PT HERE WITH SUDDEN ONSET DIFFUSE ITCHING AND RASH WITH ABDOMINAL PAIN. ONSET AROUND 144. Source: patient History of Present Illness Date Seen by Provider: Jul 28, 2020 Time Seen by Provider: 02:50 Initial Comments PT ARRIVES VIA POV FROM HOME C/O DIFFUSE RASH AND ITCHING SINCE AROUND 144 THIS AM STATES HE WOKE UP TO TAKE THE DOG OUT, AND WHEN HE CAME BACK INSIDE, HE BEGAN HAVING STOMACH CRAMPING, NAUSEA AND DRY HEAVES AND HE HAD DIFFUSE RASH AND ITCHING ALL OVER HIS BODY, INCLUDING HIS HEAD NO SWELLING TO LIPS, TONGUE OR THROAT NO DIFFICULTY BREATHING OR SWALLOWING HANDS ARE MILDLY SWOLLEN TOOK 50 MG BENADRYL AND OTC PEPCID JUST PRIOR TO ARRIVAL NO HISTORY OF SIMILAR PT STATES HE HAD SONIC HAMBURGER, CHIPS, ICE CREAM AND HIS OWN HOME BREW BEER. HAS HAD ALL BEFORE, EXCEPT POSSIBLY THE ICE CREAM PCP: DR. TOURE Allergies and Home Medications Allergies Coded Allergies: No Known Drug Allergies (Unverified , 10/30/10) Home Medications Ciprofloxacin HCl 500 Mg Tablet, 500 MG PO BID Prescribed by: CHANI CHUN on 09/16/18 0509 Ciprofloxacin HCl 500 Mg Tablet, 500 MG PO BID Prescribed by: JONATAN GAONA on 09/25/18 0935 Hydrocodone/Acetaminophen 1 Each Tablet, 1-2 EACH PO Q6H PRN for PAIN-MODERATE Prescribed by: JONATAN GAONA on 09/25/18 0935 Hydrocodone/Ibuprofen 1 Each Tablet, 1-2 EACH PO Q4H Prescribed by: CHANI CHUN on 09/16/18 0509 Lactobacillus Rhamnosus Gg 1 Each Capsule, 1 EACH PO DAILY, (Reported) Multivitamins 1 Tab Tablet, 1 TAB PO DAILY, (Reported) Ondansetron 8 Mg Tab.rapdis, 8 MG PO Q6H PRN for NAUSEA/VOMITING Prescribed by: CORINE GOMEZ on 10/01/18 1326 Ondansetron HCl 4 Mg Tab, 1-2 TAB PO Q4H Prescribed by: CHANI CHUN on 09/16/18 0509 Phenazopyridine HCl 200 Mg Tablet, 1 TAB PO TID PRN for SPASMS Prescribed by: JONATAN GAONA on 09/25/18 0935 Prednisone 20 Mg Tab, 40 MG PO DAILY Prescribed by: CHANI CHUN on 07/28/20 0338 Tamsulosin HCl 0.4 Mg Cap, 0.4 MG PO DAILY Prescribed by: CHANI CHUN on 09/16/18 0509 Tamsulosin HCl 0.4 Mg Cap, 0.4 MG PO DAILY Prescribed by: JONATAN GAONA on 09/25/18 0935 Tramadol HCl 50 Mg Tablet, 50 MG PO Q6H PRN for PAIN-MODERATE TO SEVERE Prescribed by: CORINE GOMEZ on 10/01/18 1326 Patient Home Medication List Home Medication List Reviewed: Yes Review of Systems Review of Systems Constitutional: no symptoms reported; No chills, No diaphoresis, No dizziness, No fever EENTM: no symptoms reported Respiratory: no symptoms reported Cardiovascular: no symptoms reported Gastrointestinal: see HPI, abdominal pain, nausea Genitourinary: no symptoms reported Musculoskeletal: no symptoms reported Skin: see HPI, pruritus, rash Psychiatric/Neurological: No Symptoms Reported Endocrine: No Symptoms Reported Hematologic/Lymphatic: No Symptoms Reported Past Vkdsedh-Ekzdvo-Ufcqha Hx Patient Social History Alcohol Use: Occasionally Uses Number of Drinks Today: AA Alcohol Beverage of Choice: Beer Recreational Drug Use: No Smoking Status: Never a Smoker 2nd Hand Smoke Exposure: No Recent Foreign Travel: No Contact w/Someone Who Travel: No Recent Infectious Disease Expo: No Recent Hopitalizations: No Immunizations Up To Date Tetanus Booster (TDap): Unknown PED Vaccines UTD: No Date of Influenza Vaccine: Sep 06, 2011 Seasonal Allergies Seasonal Allergies: Yes Past Medical History Surgeries: Yes (CARDIAC SURGERY CHILD; RIGHT KNEE SCOPE; LITHOTRIPSY) Cardiac, Orthopedic, Renal Respiratory: No Cardiac: Yes (AVM) Congenital Heart Disease Neurological: Yes (AVM) Reproductive Disorders: No Genitourinary: Yes (LITHOTRIPSY) Kidney Stones Gastrointestinal: No Musculoskeletal: Yes (RIGHT KNEE SCOPE) Endocrine: No HEENT: No Cancer: No Psychosocial: No Integumentary: No Blood Disorders: No Physical Exam Vital Signs Vital Signs - First Documented 07/28/20 02:59 Temp 36.2 Pulse 60 Resp 20 B/P (MAP) 130/88 (102) Pulse Ox 98 O2 Delivery Room Air Capillary Refill : Less Than 3 Seconds General Appearance: WD/WN, no apparent distress HEENT: PERRL/EOMI, normal ENT inspection, pharynx normal Neck: normal inspection Cardiovascular: normal peripheral pulses, regular rate, rhythm, no murmur Respiratory: normal breath sounds, no respiratory distress, no accessory muscle use Gastrointestinal: non tender, soft Extremities: other (MILD SWELLING OF HANDS/FINGERS--RING REMOVED) Neurologic/Psychiatric: no motor/sensory deficits, alert, normal mood/affect, oriented x 3 Skin: normal color, warm/dry, rash (DIFFUSE URTICARIA OVER MOST OF BODY, ESPECIALLY TRUNK AND FACE AND HEAD) Progress/Results/Core Measures Results/Orders My Orders Orders - CHANI CHUN DO Ed Iv/Invasive Line Start (07/28/20 03:00) Famotidine Injection (Pepcid Injection) (07/28/20 03:00) Diphenhydramine Injection (Benadryl Inje (07/28/20 03:00) Methylprednisolone Sod Succ (Solu-Medrol (07/28/20 03:00) Vital Signs/I&O 07/28/20 02:59 Temp 36.2 Pulse 60 Resp 20 B/P (MAP) 130/88 (102) Pulse Ox 98 O2 Delivery Room Air Blood Pressure Mean: 102 Progress Progress Note : Progress Note GIVEN IV BENADRYL, PEPCID AND SOLU-MEDROL WITH MUCH IMPROVEMENT--RASH NEARLY COMPLETELY GONE AND NO LONGER ITCHING Departure Impression Primary Impression: Hives of unknown origin Disposition: 01 HOME, SELF-CARE Condition: Improved Departure-Patient Inst. Referrals: JAMES TOURE MD (PCP/Family) Primary Care Physician Patient Instructions: Hives (DC) Add. Discharge Instructions: LOTS OF CLEAR LIQUIDS BENADRYL 50 MG EVERY 4 HOURS NEEDED FOR RASH OR ITCHING. MAY TAKE CLARITIN 10 MG DURING THE DAY NEEDED PEPCID 40 MG TWICE A DAY NEEDED FOR RASH AND ITCHING RETURN TO ER IF SYMPTOMS WORSEN All discharge instructions reviewed with patient and/or family. Voiced understanding. Scripts Prednisone (Prednisone) 20 Mg Tab 40 MG PO DAILY, #6 TAB 0 Refills Prov: CHANI CHUN DO 07/28/20 CHANI CHUN DO Jul 28, 2020 03:38
[2020-07-28 03:46] VITALS: BP 127/77
--- NOTE | 2020-07-28 03:59 | NUR ---
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 ATTEMTED TO CALL BOTH NUMBERS LISTED FOR THIS PATIENT AND WAS UNABLE TO REACH HIM.
--- NOTE | 2020-07-28 04:16 | NUR ---
FOUND PATIENTS RING AND GAVE IT TO REGISTRATION FOR PATIENT TO TUNE UP MECHANIC IN AM.
== END 2020-07-28 03:46 | disposition home or self-care (01) ==
LOC: EDUNIT# 02:44 → ER 02:46
DX: L50.8 Other urticaria (principal); Z79.52 Long term (current) use of systemic steroids

== ENCOUNTER → 2020-08-05 | Outpatient (CLI) | payer OTHER ==
[~2020-08-05] MED LIST changes: +PRD20T PO
--- NOTE | 2020-08-05 16:07 | NUR ---
Notified patient of positive COVID. Answered questions.
== END ==
LOC: LABNPT 08:23
PROVIDERS: ATTEND Family Medicine
DX: R50.9 Fever, unspecified (principal); R09.81 Nasal congestion

== ENCOUNTER → 2021-08-25 | Outpatient (CLI) | payer OTHER ==
[2021-08-25 07:32] LABS: BASOPHILS # (AUTO) 0.1 10^3/uL (0.0-0.1); BASOPHILS % (AUTO) 1 % (0-10); EOSINOPHILS # (AUTO) 0.3 10^3/uL (0.0-0.3); EOSINOPHILS % (AUTO) 5 % (0-10); HEMATOCRIT 44 % (40-54); HEMOGLOBIN 14.5 g/dL (13.3-17.7); LYMPHOCYTES # (AUTO) 2.2 10^3/uL (1.0-4.0); LYMPHOCYTES % (AUTO) 39 % (12-44); MEAN CORPUSCULAR HEMOGLOBIN 29 pg (25-34); MEAN CORPUSCULAR HGB CONC 33 g/dL (32-36); MEAN CORPUSCULAR VOLUME 87 fL (80-99); MONOCYTES # (AUTO) 0.6 10^3/uL (0.0-1.0); MONOCYTES % (AUTO) 10 % (0-12); NEUTROPHILS # (AUTO) 2.5 10^3/uL (1.8-7.8); NEUTROPHILS % (AUTO) 45 % (42-75); PLATELET COUNT 218 10^3/uL (130-400); WHITE BLOOD COUNT 5.6 10^3/uL (4.3-11.0)
[2021-08-25 08:13] LABS: ALBUMIN 4.1 GM/DL (3.2-4.5); BILIRUBIN,TOTAL 0.6 MG/DL (0.1-1.0); CALCIUM 9.4 MG/DL (8.5-10.1); CREATININE SERUM 0.95 MG/DL (0.60-1.30); FREE T4 (FREE THYROXINE) 0.92 NG/DL (0.70-1.48); POTASSIUM 4.3 MMOL/L (3.6-5.0)
== END ==
LOC: LAB 07:09
PROVIDERS: ATTEND Family Medicine
DX: Z00.00 Encounter for general adult medical examination without abnormal findings (principal); Z13.220 Encounter for screening for lipoid disorders
CPT/HCPCS: 36415; 80053; 80061; 84439; 84443; 85025

== ENCOUNTER → 2023-02-06 | Outpatient (CLI) | payer OTHER ==
[~2023-02-06] MED LIST changes: +HYDR-4085 PO; -HYDR-87 PO
[2023-02-06 07:38] LABS: BASOPHILS % (AUTO) 1 % (0-10); EOSINOPHILS # (AUTO) 0.2 10^3/uL (0.0-0.3); EOSINOPHILS % (AUTO) 4 % (0-10); HEMATOCRIT 41 % (40-54); HEMOGLOBIN 13.7 g/dL (13.3-17.7); LYMPHOCYTES # (AUTO) 2.6 10^3/uL (1.0-4.0); LYMPHOCYTES % (AUTO) 45 % (12-44); MEAN CORPUSCULAR HEMOGLOBIN 29 pg (25-34); MEAN CORPUSCULAR HGB CONC 34 g/dL (32-36); MEAN CORPUSCULAR VOLUME 86 fL (80-99); MEAN PLATELET VOLUME 11.1 fL (9.0-12.2); MONOCYTES # (AUTO) 0.6 10^3/uL (0.0-1.0); MONOCYTES % (AUTO) 11 % (0-12); NEUTROPHILS # (AUTO) 2.4 10^3/uL (1.8-7.8); NEUTROPHILS % (AUTO) 40 % (42-75); PLATELET COUNT 202 10^3/uL (130-400); WHITE BLOOD COUNT 5.9 10^3/uL (4.3-11.0)
[2023-02-06 07:54] LABS: CALCIUM 8.8 MG/DL (8.5-10.1)
[2023-02-06 07:55] LABS: TOTAL PROTEIN 6.5 GM/DL (6.4-8.2)
[2023-02-06 07:57] LABS: BILIRUBIN,TOTAL 0.5 MG/DL (0.1-1.0)
[2023-02-06 07:59] LABS: CREATININE SERUM 0.97 MG/DL (0.60-1.30)
[2023-02-06 08:25] LABS: FREE T4 (FREE THYROXINE) 0.88 NG/DL (0.70-1.48)
== END ==
LOC: LAB 07:15
PROVIDERS: ATTEND Family Medicine
DX: Z00.00 Encounter for general adult medical examination without abnormal findings (principal); E03.9 Hypothyroidism, unspecified; R53.83 Other fatigue
CPT/HCPCS: 36415; 80053; 80061; 84153; 84403; 84439; 84443; 85025